=== PATIENT | female | born 1950 | race Caucasian/White ===

== ENCOUNTER → 2022-12-09 09:56 | Outpatient (BNVA) | payer OTHER, MEDICARE, SELFPAY | PROVIDERS: Visit Provider Podiatrist Foot & Ankle Surgery | DX: M72.2 Plantar fascial fibromatosis; M24.571 Contracture, right ankle | CPT/HCPCS: 73630; 99203 ==

== ENCOUNTER → 2022-12-30 09:00 | Outpatient (BNVA) | payer MEDICARE, OTHER, SELFPAY | PROVIDERS: PCP Family Medicine; Visit Provider Podiatrist Foot & Ankle Surgery | DX: M24.571 Contracture, right ankle; M79.671 Pain in right foot | CPT/HCPCS: 99213 ==